=== PATIENT | female | born 1950 | race Caucasian/White ===

== ENCOUNTER → 2018-07-11 11:09 | Outpatient (CLI) | payer MEDICARE, SELFPAY ==
--- NOTE | 2018-07-11 11:17 | RAD_ITS ---
STUDY: X-RAY CHEST REASON FOR EXAM: Female, 67 years old. Shortness of breath TECHNIQUE: Frontal and lateral views of the chest were obtained. COMPARISON: None. FINDINGS: Lines and tubes: None. Lungs: Under aerated. Small granuloma in the anterior segment of the left upper lobe. No focal airspace opacities. Pleura: No demonstrated abnormality. Mediastinum/kevin: Small calcified lymph nodes in the left hilum. Cardiovascular: Normal size cardiac silhouette. Central vascularity unremarkable. Atherosclerotic calcifications in the thoracic aorta. Soft tissues: Unremarkable. Bones: Degenerative changes in spine and shoulders. Upper abdomen: No demonstrated abnormality. RAD/Chest PA and Lateral IMPRESSION: No acute cardiopulmonary abnormalities. Electronically Signed: Lesly James MD at 14:22 EST , Service support ,
== END ==
PROVIDERS: Referring Provider Internal Medicine Pulmonary Disease; Visit Provider Internal Medicine Pulmonary Disease
DX: R06.00 Dyspnea, unspecified (principal)
CPT/HCPCS: 71046

== ENCOUNTER → 2019-01-16 | Outpatient (CLI) | payer MEDICARE, SELFPAY ==
[2019-01-16 11:11] LABS: Allen Test POS; Base Excess -1 mmol/L (-2 to +2); Blood Gas Specimen Type ART; O2 Delivery Device Room Air; PO2 63 mmHG (75-100); SITE R Radial; SO2 94 % (95-99); Time Given 1102; Total Carbon Dioxide 23 mmol/L; pCO2 29.2 mmHg (35-45); pH 7.49 (7.35-7.45)
--- NOTE | 2019-01-16 11:50 | CPS ---
ABG RESULTS FAXED TO DR. PHAM'S OFFICE PER PHYSICIAN REQUEST.
== END | disposition home or self-care (01) ==
LOC: PSN 10:26
PROVIDERS: Referring Provider Internal Medicine Pulmonary Disease; Visit Provider Internal Medicine Pulmonary Disease
DX: R06.00 Dyspnea, unspecified (principal); R09.02 Hypoxemia
CPT/HCPCS: 36600; 82803

== ENCOUNTER → 2022-01-05 | Outpatient (CLI) | payer MEDICARE, SELFPAY ==
--- NOTE | 2022-01-05 11:34 | US_ITS ---
INDICATION: UTI EXAMINATION: Ultrasound US Kidney(s) complete (eg, kidneys and bladder) TECHNIQUE: Nicole scale and color doppler images were obtained of the kidneys. COMPARISON: None. FINDINGS: RIGHT KIDNEY: The right kidney demonstrates unremarkable echogenicity, unremarkable vascularity, unremarkable size, shape and configuration, no evidence of right renal masses or cysts. No evidence of right hydronephrosis. The right kidney measures 12.6 x 5.5 x 3.5 cm. Right renal cortex measures 1.4 cm. LEFT KIDNEY: The left kidney demonstrates unremarkable echogenicity, unremarkable vascularity, unremarkable size, shape and configuration, no evidence of left renal masses or cysts. No evidence of right hydronephrosis. The left kidney measures 11.7 x 5.9 x 5.4 cm. Left renal cortex measures 1.8 cm. URINARY BLADDER: The urinary bladder is not visualized due to patient''s body habitus. US/Kidney and Bladder IMPRESSION: Unremarkable bilateral kidneys, urinary bladder was not visualized. Electronically Signed: Gamaliel Black MD at 12:52 EDT ,
== END | disposition home or self-care (01) ==
PROVIDERS: Referring Provider Urology; Visit Provider Urology
DX: N39.0 Urinary tract infection, site not specified (principal)
CPT/HCPCS: 76770

== ENCOUNTER 2022-02-04 07:07 | Day surgery (SDC) | payer MEDICARE, SELFPAY ==
[2022-02-04 07:36] VITALS: BP 110/51; PULSE 95; RESP 16; TEMP 36.9; O2SAT 96; BMI 43.9
[2022-02-04] MEDS: Lactated Ringers 1,000 ML 15 ML IV (07:55)
[2022-02-04 08:50] LABS: Bedside Glucose 156 mg/dL (74-106)
--- NOTE | 2022-02-04 09:29 | DCINST_ITS ---
Discharge Instructions Diet Discharge Diet: No restrictions Activity Discharge Activity: Return to Normal Activity May resume sexual activity in: No Restrictions Dressing / Incision Call your doctor if your incision/area has: Continuous Slow Oozing, Sudden Increased Bleeding and Foul Smelling Discharge Call your doctor if you observe: Fever of 101 or Higher, Inability to urinate and Inability to have a bowel movement Follow Up Care Please Follow Up With: Ciera Golden MD When: 2 weeks in the office, call for appointment Test Results: Test results from this visit will be discussed in further detail at your follow- up appointment, if applicable. Discharge Plan Admission Attending Provider: Ciera Golden Primary Care Provider: Maria De Jesus Cr Discharge Orders/Prescriptions Prescriptions: New cephalexin [cephalexin] 500 mg capsule 500 mg PO Q12 3 Days Qty: 6 0RF Continued magnesium 500 mg Tablet 500 mg PO DAILY lovastatin 40 mg tablet 40 mg PO DAILY Label Comments: take 1 tablet by mouth once daily valsartan 80 mg tablet 80 mg PO DAILY Label Comments: take 1 tablet by mouth once daily amlodipine 5 mg tablet 5 mg PO DAILY Label Comments: take 1 tablet by mouth once daily meclizine 25 mg Tablet 25 mg PO BID PRN (Reason: Dizziness) metformin 1,000 mg tablet 1,000 mg PO DAILY Label Comments: take 1 tablet by mouth once daily lansoprazole 30 mg capsule,delayed release(DR/EC) 30 mg PO DAILY Label Comments: take 1 capsule by mouth once daily glucosamine sulfate 750 mg Tablet 1,500 mg PO DAILY Rx Instructions: administer with a meal cholecalciferol (vitamin D3) [Vitamin D3] 50 mcg (2,000 unit) Tablet 50 mcg PO DAILY naproxen sodium [Aleve] 220 mg Capsule 220 mg PO BID PRN (Reason: Pain) Xarelto 20 mg Tablet 20 mg PO DAILY Rx Instructions: must administer with evening meal Trulicity 1.5 mg/0.5 mL pen injector 1.5 mg SUBCUT BARTHOLOMEW Label Comments: inject 0.5 milliliter subcutaneously every week ROTATE INJECTION SITES Referrals / Follow Up: Maria De Jesus Cr DO [Primary Care Provider] - Disposition Disposition (needs filled in before D/C Order can be placed): Home, Self Care
--- NOTE | 2022-02-04 09:32 | OP.PCM_ITS ---
Report of Operation Date of Procedure: 02/04/22 Pre-Operative Diagnosis: Urinary tract infections, urethral stricture female, m ixed incontinence Post-Operative Diagnosis: Same Surgery/Procedure Performed:: Urethral dilation, cystoscopy, pelvic exam under anesthesia Surgeon: Ciera Golden Type of Anesthesia: [facility] [place] Specimen's removed: None Description of Procedure: The patient is a 71-year-old female with recurrent urinary tract infections, incontinence and a urethral stricture. She presents today for urethral dilation, cystoscopy and pelvic exam under anesthesia. Informed consent was obtained. The patient was taken to the operating room and placed on the operating room table. Anesthesia monitored the head, neck, airway, IV access and vital signs throughout the case. Once anesthesia was appropriate ministered the patient was placed into dorsolithotomy position and was prepped and draped in usual sterile fashion. A pelvic exam was performed revealing irregularities of the vaginal mucosa secondary to scarring and prolapse. The vaginal vault is very short in length. There is a cystocele defect and a rectocele defect stage II. At this time the urethra was dilated from 16 Azeri to 28 Azeri using female sounds. There is mild cracking of the urethral mucosa. The cystoscope was then inserted through the urethra under direct visualization into the urinary bladder. The bladder mucosa was visualized in its entirety revealing ureters in the correct anatomic position. 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 There is no evidence of mass or foreign body. At this time the patient's bladder was emptied and the case was terminated. She was awakened and taken to the recovery room in good condition. There were no complications during this procedure. Grafts/Implants Used: None Complications None Admit VTE Documentation VTE Present on Admission: Yes VTE Mechan Device Prophylaxis: SCD's VTE Pharm Prophylaxis ordered?: Yes
[2022-02-04] MEDS: Cefazolin 2 GM in 0.9% Normal Saline 100 ML IV (09:43)
[2022-02-04 10:10] VITALS: BP 110/51; BP 118/69; PULSE 98; RESP 16; TEMP 37.4; O2SAT 92
[2022-02-04 10:15] VITALS: BP 110/51; BP 117/64; PULSE 96; RESP 16; O2SAT 92
[2022-02-04 10:20] VITALS: BP 110/51; BP 116/58; PULSE 93; RESP 16; O2SAT 94
[2022-02-04 10:25] VITALS: BP 110/51; BP 118/55; PULSE 93; RESP 16; TEMP 36.9; O2SAT 94
[2022-02-04 10:48] VITALS: BP 110/51
== END 2022-02-04 10:49 | disposition home or self-care (01) ==
LOC: SDC 07:09 → AC 07:10
PROVIDERS: Referring Provider Urology; Visit Provider Urology
PROC: 0TJB8ZZ Inspection of Bladder, Via Natural or Artificial Opening Endoscopic (ICD-10-PCS; CPT 57410; principal; 2022-02-04 08:35)
PROC: (CPT 52281; 2022-02-04 08:35)
DX: N35.92 Unspecified urethral stricture, female (principal); N39.46 Mixed incontinence; N39.0 Urinary tract infection, site not specified; N81.10 Cystocele, unspecified; N81.6 Rectocele
CPT/HCPCS: 52281; 00910; 82962; J7120; J2405

== ENCOUNTER → 2023-07-01 | Outpatient (CLI) | payer MEDICARE, SELFPAY ==
--- NOTE | 2023-07-01 13:44 | SP.MBSS_ITS ---
Modified Barium Swallow Patient Information Study Date: 07/01/23 Study Time: 13:00 Direct Billable Minutes: 84 Total Minutes procedure & reportin Diagnosis: Shortness of breath R06.2; Dysphagia R13.10 Referring Physician: Arjun Keller V Reason for Referral: Objectively assess swallow function, assess risk for aspiration, and determine recommendations for least restrictive diet textures and compensatory strategies to improve safety of swallow. Medical History: The patient reports that foods and sometimes scents of foods, such as chocolate, vinegar, PB, and peppermint patties, make her feel choked up and not able to breathe before she swallows. She has never required the Heimlich. Drinks do not give her difficulty swallowing. She denies COPD. She sleep with oxygen. 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 When asked to describe the dysfunction, she reports that sometimes when walking she feels like she can?t breathe. Per patient, she was recently referred to a speech therapist with [facility] who taught her breathing techniques to use when she feels like she can?t breathe. She demonstrated breaths by holding her diaphragm, inhaling through her nose, and exhaling through her mouth. She does follow with an ENT, Dr. 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 She has hx of GERD and gastroparesis. She manages GERD with medication. 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 Current Diet Ordered: Regular / Thin liquids Dentition: Natural Teeth and Missing Teeth Mental Status: WNL Respiratory Status: Oxygenating on Room Air Penetration-Aspiration Scale Penetration-Aspiration Scale: OBJECTIVE ASSESSMENT OF SWALLOW FUNCTION (QUANTITATIVE ? PER TRIAL): PENETRATION / ASPIRATION SCALE (DIEHL): 1 = does not enter airway 2 = enters airway/above vocal folds/ejected 3 = enters airway/above vocal folds/not ejected 4 = enters airway/contacts vocal folds/ejected 5 = enters airway/contacts vocal folds/not ejected 6 = enters airway/below vocal folds/ejected 7 = enters airway/below vocal folds/not ejected despite effort 8 = enters airway/below vocal folds/no effort VIDEOFLOROSCOPIC SCALE SCORE (DIEHL): Grade I = aspiration of material that has penetrated into the laryngeal vestibule, intact cough reflex Grade II = aspiration < 10 % of the bolus, intact cough reflex Grade III = aspiration of < 10 % of the bolus, reduced cough reflex or aspiration of > 10 % of the bolus, intact cough reflex Grade IV = aspiration of > 10 % of the bolus, reduced cough reflex Penetration-Aspiration Scale Score Thin Liquid via teaspoon: Result: 1= does not enter airway Thin Liquid via teaspoon Trial 2: Result: 2= enter airway/above vocal folds/ejected (trace) Thin Liquid via small single sip: cup: Result: 1= does not enter airway [place] Thick Liquid via large single sip: cup: Result: 1= does not enter airway Pudding via teaspoon: Result: 1= does not enter airway Comment: Esophageal screen - retention of pudding in middle and lower esophagus. Liquid wash somewhat improved clearance; however, she demonstrated retention with retrograde flow of thin liquids in the lower esophagus, as well. / Cookie: Result: 1= does not enter airway Thin Liquid via sequential sips:straw: Result: 2= enter airway/above vocal folds/ejected (trace) Oral Phase Labial Seal: Escape beyond mid-chin (likely due to GLUE [employer]ER providing sip via tsp on 2nd trial; otherwise, good lip seal during the study) Tongue Control During Bolus Hold: Cohesive bolus between tongue to palatal seal Bolus Preparation/Mastication: Slow prolonged chewing/mashing with complete recollection Bolus Transport/Lingual Motion: Brisk tongue motion Oral Residue: Residue collection on oral structures (piecemeal deglutition with cookie) Pharyngeal Phase Initiation of Pharyngeal Swallow: Bolus head at posterior laryngeal surgace of epiglottis (thin by straw) Soft Palate Elevation: Trace column of contrast/air between soft palate and pharyngeal wall Laryngeal Elevation: Comp. Superior move thyroid cart w/comp. apprx arytenoid cart-epig pet Anterior Hyoid Excursion: Complete anterior movement Epiglottic Movement: Complete inversion Laryngeal Vestibule Closure at Height of Swallow: Incomplete; narrow column of air/contrast in laryngeal vestibule (trace laryngeal penetration with full ejection after the swallow has been completed) Pharyngeal Stripping Wave: Present - complete Pharyngoesophageal Segment Opening: Complete distension and complete duration; no obstruction of flow Tongue Base Retraction: Narrow column of contrast between tongue base & post. pharyngeal wall Pharyngeal Residue: Collection of residue within or on pharyngeal structures Esophageal Phase Esophageal Clearance: Esophageal retention w/ retrograde flow through pharyngoesophageal seg Diagnosis/Impression Diagnosis: Oropharyngeal swallow function grossly WNL Impression: The oropharyngeal swallow function is grossly WNL. She did present with prolonged mastication; however, cookie appeared fully chewed. Piecemeal deglutition of cookie, but she cleared all oral residues with independent use of multiple swallows as needed. Mildly reduced tongue base retraction with mild cookie residue on tongue base, which effectively cleared with a liquid wash. She demonstrated good airway closure during her swallow with only trace and shallow laryngeal penetration with full ejection during the swallow. No aspiration was observed. She did demonstrate esophageal retention of pudding in middle and lower esophagus. Liquid wash somewhat improved clearance; however, she demonstrated retention with retrograde flow of thin liquids in the lower esophagus, as well. Recommendations Diet: Regular Textures and Thin Liquids Compensatory Strategies: Small Bites (chew thoroughly), Small Sips, Slow Rate, Alternate bites/solids and sips/liquids, Sitting upright and Remain sitting upright for 30 minutes after PO intake Recommend Repeat Modified Barium Swallow: No Need for Skilled Speech Therapy Services: No Recommended Referrals: GI Consult (Consider GI consult due to esophageal retention with retrograde flow.) and ENT Consult (Patient is describing closure of her airway to certain smells when chewing. She reports vocal cord dysfunction of some kind. Consider ENT consult to assess patient's concern for vocal fold dysfunction.) Education Completed: 1. Described result of evaluation. Status Active ST Patient: Active Contact Information [facility] Speech Therapy:: Halie Wetzel M.A. [facility]? Speech-Language Pathologist?? [facility] [address]?? [place] [address]?? [email or web address]?? [phone]??
== END | disposition home or self-care (01) ==
PROVIDERS: Referring Provider Internal Medicine Pulmonary Disease; Visit Provider Internal Medicine Pulmonary Disease
DX: R13.10 Dysphagia, unspecified (principal); R06.02 Shortness of breath
CPT/HCPCS: 74230; 92611

== ENCOUNTER → 2024-03-15 | Outpatient (CLI) | payer MEDICARE, SELFPAY | END | disposition home or self-care (01) | PROVIDERS: Referring Provider Urology; Visit Provider Urology | DX: N39.0 Urinary tract infection, site not specified (principal) | CPT/HCPCS: 87077; 87086; 87088; 87186 ==